=== PATIENT | male | born 1985 | race Caucasian/White ===

== ENCOUNTER 2022-12-17 04:32 | Emergency (ER) | payer MEDICAID, SELFPAY ==
[2022-12-17 04:32] VITALS: BP 177/102; PULSE 85; RESP 18; TEMP 36.1; O2SAT 98; BMI 18.3
--- NOTE | 2022-12-17 04:48 | EDS_ITS ---
HPI History of Present Illness Chief Complaint: Dental Narrative Narrative: Patient is a 37-year-old male with history of hypertension. He states he has broken his front upper tooth multiple times and this has been fixed in the past. He states over the past 2 days he has developed dental pain with left upper lip and cheek swelling. He states that the pain is now constant and more intense and he is concerned for infection. He denies any trauma prior to the swelling and pain beginning he denies any fevers or chills difficulty breathing or swallowing. [facility] Medical History (Updated 12/17/22 @ 05:[address] Maikel Mendoza, DO) Anxiety Hypertension Home Medications atenolol 25 mg tablet 25 mg PO DAILY 12/17/22 [History Last Taken Unknown] clindamycin HCl 300 mg capsule 300 mg PO 4X/DAY 10 days #40 caps 12/17/22 [Rx Last Taken Unknown] escitalopram oxalate 20 mg tablet (Lexapro) 20 mg PO DAILY 12/17/22 [History Last Taken Unknown] lisinopril 10 mg tablet 10 mg PO DAILY 12/17/22 [History Last Taken Unknown] oxycodone-acetaminophen 5 mg-325 mg tablet (Percocet) 1 tab PO Q6H PRN pain 3 days #12 tabs 12/17/22 [Rx Last Taken Unknown] quetiapine 50 mg tablet,extended release 24 hr 50 mg PO DAILY 12/17/22 [History Last Taken Unknown] Allergy/AdvReac Type Severity Reaction Status Date / Time No Known Allergies Allergy Verified 12/17/22 04:34 Social History Smoking Status: Current every day smoker tobacco type: cigarettes ROS ROS ED Constitutional Constitutional ED: Denies chills or fever(s) ENT ENT ED: Reports other Details: Positive dental pain and facial swelling ; Denies sore throat Cardiovascular Cardiovascular: Denies chest pain Respiratory/Chest Respiratory/Chest: Denies cough or dyspnea Gastrointestinal Gastrointestinal: Denies abdominal pain, diarrhea, nausea or vomiting Genitourinary Genitourinary ED: Denies dysuria Musculoskeletal Musculoskeletal: Denies myalgias Integumentary Denies rash Neurologic Neurologic: Denies headache(s) Psychiatric Psychiatric: Reports anxiety Hematologic/Lymphatic Hematologic/Lymphatic: Denies easy bleeding or easy bruising EXAM Physical Exam Const Vital Signs: 12/17/22 04:32 12/17/22 04:32 Temperature 97.0 F L Temperature Source Temporal Pulse Rate 85 Respiratory Rate 18 Blood Pressure 177/102 H Blood Pressure Mean 127 Pulse Ox 98 Oxygen Delivery Method Room Air Positive well nourished, well developed and obese General Appearance ED: well developed Nutritional Appearance: obese HEENT Reports moist mucous membranes HEENT Narrative: Patient has multiple dental caries. There is mild soft tissue swelling to the left upper portion of the lip and this extends into the left upper cheek over top the zygomatic arch. There is no induration present or overlying erythema or warmth. There are dental caries noted and there appears to be the start of an early abscess around the left canine without active drainage. No airway compromise no secondary changes in the posterior pharynx to suggest infection. Eyes PERRL and EOMs intact bilaterally Neck supple Neck Narrative: Positive anterior cervical of adenopathy noted No brawny edema in the submental space to suggest Vamsi's angina Resp normal respiratory effort and clear to auscultation bilaterally Cardio regular rate and regular rhythm Extremity normal to inspection Neuro oriented x3 and CN's II-XII intact bilaterally Sensorium / Orientation: alert Psych Psych Narrative: Patient has a nervous/anxious affect Skin no rashes or lesions noted MDM MDM MDM Narrative Medical decision making narrative: Patient presented to the ER hypertensive but does have a past medical history of this and is in pain and otherwise vitals are stable. He has no airway compromise or changes to suggest Vamsi's angina and no gingival changes to s uggest acute necrotizing ulcerative gingivitis. Therefore I feel there is no need for blood work or imaging studies. The patient has dental caries and there is the start of an early abscess along the left upper canine which fits where his lip and cheek are beginning to swell. However as this is an early abscess that is small in size and do not feel he would benefit from an incision and drainage at this time. Patient was offered a dental block for pain control but does not want that performed. Therefore this time he will be started antibiotics secondary to the infectious process and be given Percocet for pain control. As he has no signs of systemic infection ANUG or Vamsi's angina there is no need for further work-up and he can be safely discharged home with dental follow-up Discharge Plan Triage Chief Complaint: Dental ED Provider: Maikel Mendoza Dx/Rx/DC Orders Clinical Impression: Dental infection, Pain, dental, Hypertension Instructions: Dental Abscess, ED Dental Pain Prescriptions: New oxycodone-acetaminophen [Percocet] 5-325 mg tablet 1 tab PO Q6H PRN (Reason: pain) 3 Days Qty: 12 0RF clindamycin HCl 300 mg capsule 300 mg PO 4X/DAY 10 Days Qty: 40 0RF No Action atenolol 25 mg Tablet 25 mg PO DAILY lisinopril 10 mg Tablet 10 mg PO DAILY escitalopram oxalate [Lexapro] 20 mg Tablet 20 mg PO DAILY quetiapine 50 mg Tablet Extended Release 24 Hr 50 mg PO DAILY Primary Care Provider: NOT,DEFINED Referrals: NOT,DEFINED [Primary Care Provider] - Activity Restrictions/Additional Instructions: Please follow-up with your dentist for definitive care but your pain and swelling is secondary to the start of a dental abscess/infection. The antibiotic should resolve this but occasionally it will need lanced. Therefore take your medication as directed to help resolve infection but if you have any worsening of symptoms or further concerns return for repeat evaluation Disposition Disposition: Home, Self Care
[2022-12-17] MEDS: Clindamycin HCl 150 MG Capsule 300 MG PO (04:52)
[2022-12-17] MEDS: oxyCODONE 5 MG Tablet 10 MG PO (04:53)
[2022-12-17 04:54] VITALS: BP 167/111; PULSE 81; RESP 16
== END 2022-12-17 04:54 | disposition home or self-care (01) ==
PROVIDERS: Emergency Provider Emergency Medicine; PCP Family Medicine; Visit Provider Emergency Medicine
DX: K04.7 Periapical abscess without sinus (principal); F17.210 Nicotine dependence, cigarettes, uncomplicated; I10 Essential (primary) hypertension; E66.9 Obesity, unspecified; Z79.899 Other long term (current) drug therapy
CPT/HCPCS: 99283

== ENCOUNTER 2022-12-22 23:57 | Emergency (ER) | payer MEDICAID, SELFPAY ==
[2022-12-22 23:58] VITALS: BP 166/91; PULSE 82; RESP 16; TEMP 37.1; O2SAT 99; BMI 42.9
--- NOTE | 2022-12-23 00:11 | EDS_ITS ---
HPI History of Present Illness Chief Complaint: Abscess Narrative Narrative: Patient is a 37-year-old male with past medical history of hypertension and anxiety. He was seen on December 17 secondary to facial swelling and diagnosed with an early dental abscess. At that time incision and drainage was discussed but as the abscess was early it was felt that antibiotics could be used initially and he was prescribed clindamycin. He states has been taking the medication as directed and he has had resolution of the left facial swelling but now there is a larger mass inside of his upper lip. He states that he was told that if this develops he will need open and secondary to his he presents for evaluation. Otherwise she denies any fevers chills difficulty breathing or swallowing or history of immunosuppression [facility] Medical History Anxiety Hypertension Home Medications atenolol 25 mg tablet 25 mg PO DAILY 12/17/22 [History Last Taken Unknown] clindamycin HCl 300 mg capsule 300 mg PO 4X/DAY 10 days #40 caps 12/17/22 [Rx Last Taken Unknown] escitalopram oxalate 20 mg tablet (Lexapro) 20 mg PO DAILY 12/17/22 [History Last Taken Unknown] lisinopril 10 mg tablet 10 mg PO DAILY 12/17/22 [History Last Taken Unknown] oxycodone-acetaminophen 5 mg-325 mg tablet (Percocet) 1 tab PO Q6H PRN pain 3 days #12 tabs 12/17/22 [Rx Last Taken Unknown] quetiapine 50 mg tablet,extended release 24 hr 50 mg PO DAILY 12/17/22 [History Last Taken Unknown] amoxicillin 875 mg-potassium clavulanate 125 mg tablet 1 tab PO BID 5 days #10 tabs 12/23/22 [Rx Last Taken Unknown] Allergy/AdvReac Type Severity Reaction Status Date / Time No Known Allergies Allergy Verified 12/23/22 00:00 Social History Smoking Status: Current every day smoker tobacco type: cigarettes ROS ROS ED Constitutional Constitutional ED: Denies chills or fever(s) ENT ENT ED: Reports other Details: Positive dental abscess/pain ; Denies sore throat Cardiovascular Cardiovascular: Denies chest pain Respiratory/Chest Respiratory/Chest: Denies cough or dyspnea Gastrointestinal Gastrointestinal: Denies abdominal pain, diarrhea, nausea or vomiting Genitourinary Genitourinary ED: Denies dysuria Musculoskeletal Musculoskeletal: Denies myalgias Integumentary Denies rash Neurologic Neurologic: Denies headache(s) Psychiatric Psychiatric: Reports anxiety Hematologic/Lymphatic Hematologic/Lymphatic: Denies easy bleeding or easy bruising EXAM Physical Exam Const Vital Signs: 12/22/22 23:58 Temperature 98.7 F Temperature Source Temporal Pulse Rate 82 Respiratory Rate 16 Blood Pressure 166/91 H Blood Pressure Mean 116 Pulse Ox 99 Oxygen Delivery Method Room Air Positive well nourished and well developed General Appearance ED: well developed HEENT Reports moist mucous membranes HEENT Narrative: There is a area of soft tissue swelling and fluctuance along the inner left mid to upper lip consistent with abscess. There is no active discharge present. Otherwise there is no tongue swelling no airway edema or compromise. No changes to suggest ANUG Eyes PERRL and EOMs intact bilaterally Neck supple Neck Narrative: Positive anterior cervical of adenopathy No brawny edema in the submental space to suggest Vamsi's angina Resp normal respiratory effort and clear to auscultation bilaterally Cardio regular rate and regular rhythm Extremity normal to inspection Neuro oriented x3 and CN's II-XII intact bilaterally Sensorium / Orientation: alert Psych Psych Narrative: Patient has a nervous/anxious affect Skin no rashes or lesions noted Skin Narrative: Mild soft tissue swelling to the left mid to/upper lip consistent with dental abscess but no overlying erythema or warmth noted MDM MDM MDM Narrative Medical decision making narrative: Patient presented to the ER hypertensive but has a past medical history of this and otherwise with stable vitals. From his last visit he had improvement of his left cheek swelling but there is now a full/mature abscess along the mid to left portion of the upper inner lip. He does not have signs of acute necrotizing ulcerative gingivitis he does not have signs of peritonsillar or retropharyngeal abscess or airway compromise or systemic infection and therefore there is no need for laboratory or imaging study. The patient was given a dental block as documented below following this the abscess was incised and drained. Now the abscess has been incised and drained and he is not immunosuppressed or showing signs of systemic infection there is no need for further evaluation in the ER and is otherwise safe for discharge Patient was given a left superior alveolar dental block using 1.5 mL of 2% lidocaine with epinephrine and 1.5 mL of 0.5% Marcaine. Following this #11 blade was used to make 1/2 cm incision over top the area of fluctuance. A large amount of blood and purulent material was expressed. Loculations were dissected with a needle ruiz. Patient tolerated procedure well without complication Discharge Plan Triage Chief Complaint: Abscess ED Provider: Maikel Mendoza Dx/Rx/DC Orders Clinical Impression: Dental abscess, Hypertension, Anxiety Instructions: Dental Abscess Prescriptions: New amoxicillin-pot clavulanate 875-125 mg tablet 1 tab PO BID 5 Days Qty: 10 0RF No Action atenolol 25 mg Tablet 25 mg PO DAILY lisinopril 10 mg Tablet 10 mg PO DAILY escitalopram oxalate [Lexapro] 20 mg Tablet 20 mg PO DAILY quetiapine 50 mg Tablet Extended Release 24 Hr 50 mg PO DAILY oxycodone-acetaminophen [Percocet] 5-325 mg tablet 1 tab PO Q6H PRN (Reason: pain) 3 Days Qty: 12 0RF clindamycin HCl 300 mg capsule 300 mg PO 4X/DAY 10 Days Qty: 40 0RF Primary Care Provider: Lucas Lozano Referrals: Lcuas Lozano MD [Primary Care Provider] - Activity Restrictions/Additional Instructions: Please finish out the clindamycin that was prescribed at your last visit. Also do salt water gargle/swishes 2-3 times a day for the next 3 to 5 days to help remove any remaining bacteria. If you have persistent swelling or discharge after finishing the clindamycin then you may fill and take the prescribed Augmentin. However if symptoms have completely resolved after finishing the clindamycin there is no need to take the new antibiotic. If you have worsening of symptoms or any further concerns please return for repeat evaluation Disposition Disposition: Home, Self Care
[2022-12-23] MEDS: Lidocaine 2% /Epi 1:100 (20ml) 20 ML VIAL INFILT (01:28)
== END 2022-12-23 01:54 | disposition home or self-care (01) ==
PROVIDERS: Emergency Provider Emergency Medicine; PCP Family Medicine; Visit Provider Emergency Medicine
DX: K04.7 Periapical abscess without sinus (principal); F17.210 Nicotine dependence, cigarettes, uncomplicated; I10 Essential (primary) hypertension; F41.9 Anxiety disorder, unspecified
CPT/HCPCS: 10060; 99282

== ENCOUNTER 2023-01-01 00:14 | Emergency (ER) | payer MEDICAID, SELFPAY ==
[2023-01-01 00:15] VITALS: BP 172/90; PULSE 100; RESP 18; TEMP 36.4; O2SAT 100; BMI 19.5
[2023-01-01 00:19] VITALS: BP 150/96
--- NOTE | 2023-01-01 00:28 | CT_ITS ---
EXAM: CT HEAD WITHOUT INTRAVENOUS CONTRAST CLINICAL INDICATION: fall/injury TECHNIQUE: Multiple axial images were obtained of the head without intravenous contrast. CTDIvol = ( 44.99 ) mGy, DLP = ( 880.47 ) mGycm This CT exam was performed using one or more of the following dose reduction techniques: automated exposure control, adjustment of the mA and/or kV according to patient size, and/or use of iterative reconstruction technique. This report was created using [email or web address] report generation technology. COMPARISON: None. FINDINGS: BRAIN AND EXTRA-AXIAL SPACES: Unremarkable. No intra- or extra-axial hemorrhage. No evidence of acute infarct. No intracranial mass or mass effect. There is preservation of the parsons/white matter interface. Posterior fossa structures are unremarkable. Ventricles are appropriate for age. No hydrocephalus. Basal cisterns are patent. BONES/JOINTS: Unremarkable. No discrete lytic or blastic abnormalities. SINUSES: Unremarkable as visualized. Clear. MASTOID AIR CELLS: Unremarkable. Clear. ORBITS: Visualized globes, extraocular muscles, optic nerves and retrobulbar fat appear unremarkable. Left superolateral scalp hematoma. CT/Brain/Head without Contrast IMPRESSION: No acute fracture or acute intracranial hemorrhage. Left superolateral scalp hematoma. AIDOC was utilized to assist in identifying pertinent positive findings. Electronically Signed: Maikel Bush MD at 1:00 EST ,
--- NOTE | 2023-01-01 00:29 | EX.ED.GENINJ ---
HPI History of Present Illness Chief Complaint: Head Injury Informant: patient Onset/Context/Timing Onset: Hours (5) Mechanism/Context: Fall Narrative Narrative: Patient states a little earlier he was at [employer] and slipped on wet tile floor, falling and hitting the back of his head on the floor. No loss of consciousness. No focal neurologic symptoms or vision changes, he has had some soreness in his neck since then, headache. Takes no anticoagulants or antiplatelet medications. States he wants to make sure he does not have a brain bleed. Denies any other injuries or pain. [facility] Medical History Anxiety Hypertension Home Medications atenolol 25 mg tablet 25 mg PO DAILY 12/17/22 [History Last Taken Unknown] escitalopram oxalate 20 mg tablet (Lexapro) 20 mg PO DAILY 12/17/22 [History Last Taken Unknown] lisinopril 10 mg tablet 10 mg PO DAILY 12/17/22 [History Last Taken Unknown] quetiapine 50 mg tablet,extended release 24 hr 50 mg PO DAILY 12/17/22 [History Last Taken Unknown] Allergy/AdvReac Type Severity Reaction Status Date / Time No Known Allergies Allergy Verified 01/01/23 00:18 Social History Smoking Status: Current every day smoker tobacco type: cigarettes ROS ROS ED Constitutional Constitutional ED: Denies chills or fever(s) Eyes Eyes: Denies blurry vision, change in vision or diplopia ENT ENT ED: Denies rhinorrhea or sore throat Cardiovascular Cardiovascular: Denies chest pain or palpitations Respiratory/Chest Respiratory/Chest: Denies cough or dyspnea Gastrointestinal Gastrointestinal: Denies abdominal pain, diarrhea, nausea or vomiting Genitourinary Genitourinary ED: Denies dysuria or hematuria Musculoskeletal Musculoskeletal: Reports neck pain; Denies back pain Integumentary Denies abscess or rash Neurologic Neurologic: Reports headache(s); Denies paresthesias or weakness Psychiatric Psychiatric: Denies anxiety or suicidal thoughts EXAM Physical Exam Const Vital Signs: 01/01/23 00:15 01/01/23 00:19 01/01/23 00:20 Temperature 97.5 F L Temperature Source Oral Pulse Rate 100 Respiratory Rate 18 Respiratory Effort Normal Blood Pressure 172/90 H 150/96 H Blood Pressure Mean 117 114 Pulse Ox 100 Oxygen Delivery Method Room Air Room Air Positive well nourished and well developed General Appearance ED: well developed and NAD HEENT Reports moist mucous membranes HEENT Narrative: Nontender occiput where the patient hit his head, no crepitance, depression, obvious outward signs of trauma, patient has a shaved head his scalp is plainly visible and normal-appearing. No martinez sign. No raccoon eyes. No hemotympanum. No CSF otorhinorrhea. No facial tenderness/trauma. normocephalic and atraumatic Eyes PERRL and EOMs intact bilaterally Neck full ROM and supple Neck Narrative: Mild paraspinal tenderness bilaterally upper neck, no midline tenderness, full range of motion without any pain or neurologic symptoms or difficulty. Resp normal respiratory effort Effort and Inspection: able to speak in complete sentences Back/Spine no CVA tenderness General Back: other FROM Extremity normal to inspection General Extremety ED: Negative for edema, pulses abnormal or tenderness General Extremity: Negative for edema or pulses abnormal Neuro oriented x3, CN's II-XII intact bilaterally and no sensory deficits noted Sensorium / Orientation: awake and alert Motor Exam: strength 5/5 throughout Psych mental status grossly normal and thought process normal Skin no rashes or lesions noted and no wounds MDM MDM MDM Narrative Medical decision making narrative: CT of the head was performed, images appear unremarkable. My interpretation of the CT agrees with that of the radiologist. Patient reassured, he was offered Tylenol or ibuprofen he declined both, and is stable for discharge home to grandmother given appropriate discharge instructions and reasons to return. Radiography Diagnostic Testing: Clinical Impression(s) from Imaging Studies Brain CT 01/01/23 00:28 IMPRESSION: No acute fracture or acute intracranial hemorrhage. Left superolateral scalp hematoma. AIDOC was utilized to assist in identifying pertinent positive findings. Electronically Signed: Maikel Bush MD at 1:00 EST , Discharge Plan Triage Chief Complaint: Head Injury ED Provider: Abdoulaye Vasquez Dx/Rx/DC Orders Clinical Impression: Closed head injury without loss of consciousness, Fall from slipping on wet surface Instructions: ED Head Injury (Adult) Prescriptions: No Action atenolol 25 mg Tablet 25 mg PO DAILY lisinopril 10 mg Tablet 10 mg PO DAILY escitalopram oxalate [Lexapro] 20 mg Tablet 20 mg PO DAILY quetiapine 50 mg Tablet Extended Release 24 Hr 50 mg PO DAILY Primary Care Provider: Lucas Lozano Referrals: Lucas Lozano MD [Primary Care Provider] - 1 Week if not improving Disposition Disposition: Home, Self Care
== END 2023-01-01 01:18 | disposition home or self-care (01) ==
PROVIDERS: Emergency Provider Emergency Medicine; PCP Family Medicine; Visit Provider Emergency Medicine
DX: S09.90XA Unspecified injury of head, initial encounter (principal); I10 Essential (primary) hypertension; F17.210 Nicotine dependence, cigarettes, uncomplicated; W01.0XXA Fall on same level from slipping, tripping and stumbling without subsequent striking against object, initial encounter; Y92.511 Restaurant or cafe as the place of occurrence of the external cause
CPT/HCPCS: 70450; 99282